=== PATIENT | male | born 1990 | race Caucasian/White ===

== ENCOUNTER 2017-07-14 14:12 | Emergency (ER) | payer OTHER ==
[~2017-07-14] VITALS: Ht 190.5 cm; Wt 87.5 kg
[~2017-07-14 14:12] MED LIST: AMOX125S4 PO; AMOX875T20 PO; TRAM50 PO
[2017-07-14 14:13] VITALS: BP 145/78; PULSE 69; RESP 16; TEMP 98.5; O2SAT 99
[2017-07-14 15:14] LABS: AUTOMATED NEUTROPHIL # 3.9 TH/MM3 (1.8-7.7); BASOPHIL # 0.1 TH/MM3 (0-0.2); BASOPHIL % 0.9 % (0.0-2.0); EOSINOPHIL # 0.2 TH/MM3 (0-0.4); EOSINOPHIL % 2.3 % (0.0-4.0); HEMATOCRIT 41.9 % (39.0-51.0); HEMOGLOBIN 14.3 GM/DL (13.0-17.0); LYMPH % 31.1 % (9.0-44.0); LYMPHOCYTE # 2.1 TH/MM3 (1.0-4.8); MEAN CELL VOLUME 83.7 FL (80.0-100.0); MEAN CORPUSCULAR HEMOGLOBIN 28.6 PG (27.0-34.0); MEAN CORPUSCULAR HGB CONC 34.2 % (32.0-36.0); MEAN PLATELET VOLUME 10.7 FL (7.0-11.0); MONO % 7.8 % (0.0-8.0); MONOCYTE # 0.5 TH/MM3 (0-0.9); NEUT % 57.9 % (16.0-70.0); PLATELET COUNT 256 TH/MM3 (150-450); RED BLOOD COUNT 5.01 MIL/MM3 (4.50-5.90); RED CELL DISTRIBUTION WIDTH 14.8 % (11.6-17.2); WHITE BLOOD COUNT 6.8 TH/MM3 (4.0-11.0)
[2017-07-14 15:16] LABS: BILIRUBIN, URINE SMALL (NEG); BLOOD, URINE NEG (NEG); GLUCOSE,URINE NEG (NEG); KETONE, URINE NEG (NEG); NITRITE,URINE NEG (NEG); SQUAMOUS EPITHELIAL CELL URINE <1 /hpf (0-5); URINE COLOR YELLOW (YELLW/STRAW); URINE LEUKOCYTE ESTERASE NEG (NEG)
[2017-07-14 15:26] LABS: ALBUMIN 3.9 GM/DL (3.4-5.0); ALT (GPT) 234 U/L (12-78); AST (GOT) 107 U/L (15-37); BICARBONATE 29.3 MEQ/L (21.0-32.0); BLOOD UREA NITROGEN 23 MG/DL (7-18); CHLORIDE 104 MEQ/L (98-107); CREATININE 1.46 MG/DL (0.60-1.30); DIRECT BILIRUBIN ADULT 5.7 MG/DL (0.0-0.2); GLOMERULAR FILTRATION RATE 59 ML/MIN (>89); GLUCOSE,RANDOM 87 MG/DL (74-106); SODIUM (NA) 138 MEQ/L (136-145)
[2017-07-14 15:27] LABS: ALKALINE PHOSPHATASE 158 U/L (45-117); INDIRECT BILIRUBIN 2.3 MG/DL (0.0-0.8); TOTAL PROTEIN 8.5 GM/DL (6.4-8.2)
--- NOTE | 2017-07-14 16:31 | PD ---
HPI Chief Complaint: Abnormal Results Time Seen by Provider: 16:15 Travel History International Travel<30 days: No Contact w/Intl Traveler<30days: No Traveled to known affect area: No History of Present Illness HPI 26 year old male sent to ED by PCP for evaluation of possible diagnosis of Cordell's disease. Three weeks ago the patient noted to have dark urine and montez color stools, he also noticed jaundice. Received lab work yesterday with elevated liver enzymes and ceruloplasmin with negative hepatitis panel. He was sent to ED for further evaluation and imaging. He denies any abd pain, N/V, diarrhea, alcohol use. Risk Factors:[None] Modifying Factors:[None] Associated sign and symptoms: Scleral icterus, abnormal labs results PFSH Past Surgical History Oral Surgery: Yes ([place] TEETH) Social History Alcohol Use: Yes (OCC) Tobacco Use: No Substance Use: No Allergies-Medications (Allergen,Severity, Reaction): Coded Allergies: No Known Allergies (Unverified , 05/27/13) Reported Meds & Prescriptions Reported Meds & Active Scripts Active No Active Prescriptions or Reported Medications Review of Systems Except as stated in HPI: all other systems reviewed are Neg Physical Exam Narrative GENERAL: Well developed male resting comfortably in ED, no acute distress. SKIN: Warm and dry. HEAD: Atraumatic. Normocephalic. EYES: Pupils equal and round. Mild scleral icterus bilaterally. No injection or drainage. ENT: No nasal bleeding or discharge. Mucous membranes pink and moist. NECK: Trachea midline. No JVD. CARDIOVASCULAR: Regular rate and rhythm. RESPIRATORY: No accessory muscle use. Clear to auscultation. Breath sounds equal bilaterally. GASTROINTESTINAL: Abdomen soft, non-tender, nondistended. Hepatic and splenic margins not palpable. MUSCULOSKELETAL: Extremities without clubbing, cyanosis, or edema. No obvious deformities. NEUROLOGICAL: Awake and alert. No obvious cranial nerve deficits. Motor grossly within normal limits. Five out of 5 muscle strength in the arms and legs. Normal speech. PSYCHIATRIC: Appropriate mood and affect; insight and judgment normal. Data Data Last Documented VS Vital Signs Date Time Temp Pulse Resp B/P (MAP) Pulse Ox O2 Delivery O2 Flow Rate FiO2 07/14/17 14:13 98.5 69 16 145/78 (100) 99 Orders Orders Complete Blood Count With Diff (07/14/17 14:31) Comprehensive Metabolic Panel (07/14/17 14:31) Urinalysis - C+S If Indicated (07/14/17 14:31) Lipase (07/14/17 14:31) Bilirubin Components (07/14/17 14:31) Us Abdomen Gallbladder (07/14/17 16:20) Ammonia (07/14/17 16:38) Ed Discharge Order (07/14/17 17:57) Labs Laboratory Tests Test 07/14/17 15:00 07/14/17 16:57 White Blood Count 6.8 TH/MM3 Red Blood Count 5.01 MIL/MM3 Hemoglobin 14.3 GM/DL Hematocrit 41.9 % Mean Corpuscular Volume 83.7 FL Mean Corpuscular Hemoglobin 28.6 PG Mean Corpuscular Hemoglobin Concent 34.2 % Red Cell Distribution Width 14.8 % Platelet Count 256 TH/MM3 Mean Platelet Volume 10.7 FL Neutrophils (%) (Auto) 57.9 % Lymphocytes (%) (Auto) 31.1 % Monocytes (%) (Auto) 7.8 % Eosinophils (%) (Auto) 2.3 % Basophils (%) (Auto) 0.9 % Neutrophils # (Auto) 3.9 TH/MM3 Lymphocytes # (Auto) 2.1 TH/MM3 Monocytes # (Auto) 0.5 TH/MM3 Eosinophils # (Auto) 0.2 TH/MM3 Basophils # (Auto) 0.1 TH/MM3 CBC Comment DIFF FINAL Differential Comment Urine Color YELLOW Urine Turbidity CLEAR Urine pH 7.0 Urine Specific [place] 1.013 Urine Protein NEG mg/dL Urine Glucose (UA) NEG mg/dL Urine Ketones NEG mg/dL Urine Occult Blood NEG Urine Nitrite NEG Urine Bilirubin SMALL Urine Urobilinogen 2.0 MG/DL Urine Leukocyte Esterase NEG Urine WBC 1 /hpf Urine Squamous Epithelial Cells <1 /hpf Microscopic Urinalysis Comment CULT NOT INDICATED Blood Urea Nitrogen 23 MG/DL Creatinine 1.46 MG/DL Random Glucose 87 MG/DL Total Protein 8.5 GM/DL Albumin 3.9 GM/DL Calcium Level 9.0 MG/DL Alkaline Phosphatase 158 U/L Aspartate Amino Transf (AST/SGOT) 107 U/L Alanine Aminotransferase (ALT/SGPT) 234 U/L Total Bilirubin 8.0 MG/DL Direct Bilirubin 5.7 MG/DL Sodium Level 138 MEQ/L Potassium Level 3.8 MEQ/L Chloride Level 104 MEQ/L Carbon Dioxide Level 29.3 MEQ/L Anion Gap 5 MEQ/L Estimat Glomerular Filtration Rate 59 ML/MIN Indirect Bilirubin 2.3 MG/DL Lipase 139 U/L Ammonia LESS THAN 10 MCMOL/L MDM Medical Decision Making Medical Screen Exam Complete: Yes Emergency Medical Condition: Yes Medical Record Reviewed: Yes Interpretation(s) Laboratory Tests Test 07/14/17 15:00 07/14/17 16:57 Urine Bilirubin SMALL (NEG) Blood Urea Nitrogen 23 MG/DL (7-18) Creatinine 1.46 MG/DL (0.60-1.30) Total Protein 8.5 GM/DL (6.4-8.2) Alkaline Phosphatase 158 U/L (45-117) Aspartate Amino Transf (AST/SGOT) 107 U/L (15-37) Alanine Aminotransferase (ALT/SGPT) 234 U/L (12-78) Total Bilirubin 8.0 MG/DL (0.2-1.0) Direct Bilirubin 5.7 MG/DL (0.0-0.2) Estimat Glomerular Filtration Rate 59 ML/MIN (>89) Indirect Bilirubin 2.3 MG/DL (0.0-0.8) Ammonia LESS THAN 10 MCMOL/L Last 24 hours Impressions Gall Bladder Ultrasound 07/14/17 1620 Signed Impressions: Service Date/Time: Friday, July 14, 2017 16:58 - CONCLUSION: 1. Gallbladder is completely decompressed with at least 2 luminal echogenic foci which could represent either small stones or mural polyps. With no fluid in the gallbladder , cannot determine mobility. 2. Otherwise negative Jaswinder William MD Differential Diagnosis Cordell's disease vs viral hepatitis vs alcoholic hepatitis Narrative Course Ultrasound did not show any signs of acute hepatic processes or acute intra- abdominal processes in the right upper quadrant. Lab work shows significant liver enzyme deviations. Ammonia level is unremarkable. Case was discussed with Dr. Bruce, and she states that she would recommend further outpatient follow-up for evaluation and definitive diagnosis which probably will include liver biopsy. Patient can be released with follow-up to primary care physician and GI as an outpatient. Return for any worsening in symptoms, weakness, vomiting, abdominal pain, or new symptoms as needed. The plan was discussed with him and he states understanding. He should avoid drinking alcohol or using Tylenol meanwhile. Diagnosis Primary Impression: Abnormal liver enzymes Referrals: Le Bruce MD Scripts No Active Prescriptions or Reported Meds Disposition: 01 DISCHARGE HOME Condition: Stable Victor Manuel Liriano MD Jul 14, 2017 16:31
--- NOTE | 2017-07-14 17:51 | RADRPT ---
EXAM DATE/TIME: 07/14/2017 16:58 [facility] COMPARISON: No previous studies available for comparison. INDICATIONS : Nausea/vomiting. MEDICAL HISTORY : Jaundice. Nausea and vomiting. SURGICAL HISTORY : [place] teeth. ENCOUNTER: Initial ACUITY: 1 day PAIN SCORE: 0/10 LOCATION: Right upper quadrant MEASUREMENTS: LIVER: 15.6 cm length COMMON DUCT: 3 mm RIGHT KIDNEY: 11.9 x 6.1 x 5.6 cm FINDINGS: LIVER: Normal echotexture without focal lesion or ductal dilatation. COMMON DUCT: No intraluminal mass or stone visualized. GALLBLADDER: Gallbladder is completely decompressed. Echogenic mural foci in the decompressed lumen could represen t either small stones or calculi. These do not appear to be mobile but again, without fluid in the ga llbladder, would not expect stone motion. PANCREAS: The visualized portions are within normal limits. RIGHT KIDNEY: No evidence of hydronephrosis, stone, or mass. CONCLUSION: 1. Gallbladder is completely decompressed with at least 2 luminal echogenic foci which could represen t either small stones or mural polyps. With no fluid in the gallbladder, cannot determine mobility. 2. Otherwise negative Jaswinder William MD on July 14, 2017 at 17:45 Board Certified Radiologist. This report was verified electronically.
[2017-07-14 18:58] VITALS: BP 138/79
== END 2017-07-14 19:01 | disposition home or self-care (01) ==
LOC: NEPE 14:12
DX: R74.8 Abnormal levels of other serum enzymes (principal)
CPT/HCPCS: 76705; 80053; 81001; 82140; 82248; 83690; 85025; 99284